=== PATIENT | female | born 1980 | race Caucasian/White ===

== ENCOUNTER 2017-04-23 11:37 | Emergency (ER) | payer OTHER ==
[~2017-04-23] VITALS: Ht 175.2 cm; Wt 104.3 kg
[2017-04-23] MEDS ORDERED: CYCLOBENZAPRINE10 MG PO (13:29)
[2017-04-23] MEDS ORDERED: NAPROSYN500 MG PO (13:29)
== END 2017-04-23 15:14 | disposition home or self-care (01) ==
LOC: ED 11:37
DX: S46.812A Strain of other muscles, fascia and tendons at shoulder and upper arm level, left arm, initial encounter (principal); F17.200 Nicotine dependence, unspecified, uncomplicated; Z88.2 Allergy status to sulfonamides; X58.XXXA Exposure to other specified factors, initial encounter; Y93.89 Activity, other specified; Y92.89 Other specified places as the place of occurrence of the external cause; Y99.8 Other external cause status

== ENCOUNTER → 2017-04-23 | Outpatient (CLI) | payer OTHER ==
[~2017-04-23] MED LIST: CYCLOBENZAPRINE10 MG PO; NAPROSYN500 MG PO
[2017-04-23 16:16] LABS: BASO # 0.1 10*3/uL (0.0-0.1); BASO % 0.4 % (0.0-1.0); EOS # 0.1 10*3/uL (0.0-0.4); EOS % 0.7 % (1.0-4.0); HEMATOCRIT 41.6 % (37.0-47.0); HEMOGLOBIN 13.7 g/dl (12.0-16.0); LYMPH # 2.3 10*3/uL (1.3-4.4); LYMPH % 19.1 % (27.0-41.0); MEAN CORPUSCULAR HGB 31.3 pg (27.0-31.0); MEAN CORPUSCULAR HGB CONC 32.9 g/dl (33.0-37.0); MONO # 0.8 10*3/uL (0.1-1.0); MONO % 7.1 % (3.0-9.0); NEUT # 8.6 10*3/uL (2.3-7.9); NEUT % 72.2 % (47.0-73.0); PLATELET COUNT AUTOMATED 256 10*3/uL (130-400); RED BLOOD COUNT 4.38 10*6/uL (4.10-5.10); RED CELL DISTRI WIDTH 13.2 % (0-14.5); WHITE BLOOD COUNT 11.9 10*3/uL (4.8-10.8)
[2017-04-23 16:28] LABS: URIC ACID 4.6 mg/dL (2.6-6.0)
== END ==
LOC: LAB 15:47
PROVIDERS: Orthopaedic Surgery
DX: M25.519 Pain in unspecified shoulder (principal)

== ENCOUNTER 2023-09-14 08:31 | Emergency (ER) | payer OTHER ==
[~2023-09-14] VITALS: Ht 177.8 cm; Wt 104.3 kg
[2023-09-14] MEDS ORDERED: Acetaminophen/Oxycodone 5 MG/325 MG TABLET PO ONE (08:45)
[2023-09-14] MEDS ORDERED: VRAYLAR6 MG PO (08:46)
[2023-09-14] MEDS ORDERED: INTUNIV2 MG PO (08:47)
[2023-09-14] MEDS ORDERED: VALSARTAN160 MG PO (08:48)
[2023-09-14] MEDS ORDERED: INTUNIV1 MG PO (08:48)
[2023-09-14] MEDS ORDERED: BUSPAR5 MG PO (08:48)
[2023-09-14] MEDS ORDERED: MELOXICAM15 MG PO (09:18)
== END 2023-09-14 09:37 | disposition home or self-care (01) ==
LOC: ED 08:31
DX: S93.401A Sprain of unspecified ligament of right ankle, initial encounter (principal); S93.601A Unspecified sprain of right foot, initial encounter; I10 Essential (primary) hypertension; Z90.710 Acquired absence of both cervix and uterus; Z88.2 Allergy status to sulfonamides; X50.1XXA Overexertion from prolonged static or awkward postures, initial encounter; Y93.01 Activity, walking, marching and hiking; Y92.89 Other specified places as the place of occurrence of the external cause; Y99.8 Other external cause status